=== PATIENT | female | born 1945 ===

== ENCOUNTER 2018-03-29 07:21 | Day surgery (SDC) | payer MEDICARE ==
[2016-05-29 12:58] VITALS: BMI 27.8
[2018-03-29 07:53] VITALS: TEMP 97; O2SAT 100
[2018-03-29] MEDS ORDERED: Lactated Ringer's 1,000 ML IV ONE (08:52)
[2018-03-29] MEDS ORDERED: Propofol 10 mg/ml Inj (20 ML) ONE (08:55)
[2018-03-29 09:42] VITALS: RESP 12
[2018-03-29 10:31] VITALS: BP 144/84; PULSE 60
== END 2018-03-29 11:00 | disposition home or self-care (01) ==
LOC: C.ENDO 07:21
PROVIDERS: ATTEND Internal Medicine Gastroenterology
DX: D12.3 Benign neoplasm of transverse colon (principal); D12.5 Benign neoplasm of sigmoid colon; K64.8 Other hemorrhoids
CPT/HCPCS: 45388; 88305; J2001; J2704; J7120